=== PATIENT | female | born 1975 | race American Indian/Alaskan Native ===

== ENCOUNTER 2017-11-13 08:08 | Outpatient (CLI) | payer OTHER ==
--- NOTE | 2017-11-13 09:23 | XRay Report ---
LEFT HAND RADIOGRAPHS INDICATION: Left hand pain. Bump near tip of left third digit. COMPARISON: None similar. FINDINGS: AP, lateral and oblique left hand radiographs suggest approximately 6 mm soft tissue prominence/bump medial to the third digit PIP joint. No radiopaque foreign body. Slight DIP joints degenerative spurring may be developing. Normal remainder exam without suspicious erosions. CONCLUSION: Approximately 6 mm left third digit soft tissue prominence medial to the DIP joint may be correlated for clinically. Slight/early osteoarthrosis may also be developing, as described. Thank you for the opportunity to participate in this patient's care.
== END 2017-11-13 08:09 | disposition home or self-care (01) ==
LOC: SPVIMAG 08:08
PROVIDERS: ATTEND Orthopaedic Surgery Sports Medicine
DX: M79.642 Pain in left hand (principal)